=== PATIENT | male | born 1960 | race Caucasian/White ===

== ENCOUNTER 2024-12-05 10:47 | Emergency (ER) | payer MEDICAID ==
[~2024-12-05] VITALS: Ht 177.8 cm; Wt 98.0 kg
[2024-12-05 11:01] VITALS: O2SAT 93
[2024-12-05 13:23] VITALS: BP 133/74; PULSE 91; RESP 20; TEMP 37.2; O2SAT 96
== END 2024-12-05 13:24 | disposition home or self-care (01) ==
LOC: ER 10:47
DX: S63.602A Unspecified sprain of left thumb, initial encounter (principal); E78.00 Pure hypercholesterolemia, unspecified; E11.9 Type 2 diabetes mellitus without complications; I10 Essential (primary) hypertension; J44.9 Chronic obstructive pulmonary disease, unspecified; Z96.649 Presence of unspecified artificial hip joint; X58.XXXA Exposure to other specified factors, initial encounter; Y93.89 Activity, other specified; Y92.89 Other specified places as the place of occurrence of the external cause; Y99.8 Other external cause status
CPT/HCPCS: 73130; 99283; Z7610